=== PATIENT | female | born 1960 | race Caucasian/White ===

== ENCOUNTER 2018-09-19 11:22 | Emergency (ER) | END 2018-09-19 13:32 | disposition home or self-care (01) ==

== ENCOUNTER 2018-11-27 13:51 | Emergency (ER) | payer OTHER ==
[~2018-11-27] VITALS: Ht 165.1 cm; Wt 47.4 kg
[~2018-11-27 13:51] MED LIST: IBUP-1561 PO
[2018-11-27 14:03] VITALS: BP 117/61; PULSE 76; RESP 20; Ht 165.1 cm; Wt 47.4 kg
--- NOTE | 2018-11-27 16:50 | ERD ---
ER Documentation Chief Complaint Chief Complaint Complains of generalized rash x 2 days HPI 58-year-old female with no past medical history presents with scattered itchy erythematous macules over the face arms and hands bilaterally. Denies fever, pain, wheezing, shortness of breath. Denies new foods, deodorants, soaps, medications. Denies past medical history. Denies allergies. Denies medications. Denies surgeries. Denies alcohol, tobacco, drug use. Up to date on vaccines. ROS All systems reviewed and are negative except as per history of present illness. Medications Home Meds Active Scripts Diphenhydramine Hcl* (Benadryl*) 25 Mg Cap, 25 MG PO Q6 PRN for ITCHING/RASH, #30 TAB Prov:MANASA MCGUIRE 11/27/18 Triamcinolone Acetonide (Triamcinolone Acetonide) 0.1% - 60 Ml Lotion, 1 APPLIC TOP TID for Bug Bites, #1 BOTTLE Prov:MANASA MCGUIRE 11/27/18 Ibuprofen* (Motrin*) 400 Mg Tab, 400 MG PO Q6, #20 TAB Prov:DIANN HENSLEY MD 09/19/18 Allergies Allergies: Coded Allergies: No Known Allergy (Unverified , 11/27/18) PMhx/Soc History of Surgery: Yes (APPENDECTOMY,HYSTERECTOMY) Anesthesia Reaction: No Hx Neurological Disorder: No Hx Respiratory Disorders: No Hx Cardiac Disorders: No Hx Psychiatric Problems: No Hx Alcohol Use: No Hx Substance Use: No Hx Tobacco Use: No FmHx Family History: No diabetes, No coronary disease, No other Physical Exam Vitals Vital Signs Date Temp Pulse Resp B/P (MAP) Pulse Ox O2 O2 Flow FiO2 Time Delivery Rate 11/27/18 98.6 76 20 117/61 100 14:03 (79) Physical Exam Const: No acute distress Eyes: Normal Conjunctiva ENT: Normal External Ears, Nose and Mouth. Airway patent with no swelling or edema in the tongue or throat. Resp: Clear to auscultation bilaterally Cardio: Regular rate and rhythm, no murmurs Skin: Scattered erythematous macules with punctate center located on the face and arms bilaterally. No fluctuance or induration. No discharge or signs of infection. Neur: Awake and alert Psych: Normal Mood and Affect Results 24 hrs Current Medications Medications Dose Sig/[place] Start Time Status Last (Trade) Ordered Route PRN Stop Time Admin Dose Reason Admin 25 mg ONCE ONCE 11/27/18 DC 11/27/18 Diphenhydrami PO 17:00 16:54 ne HCl 11/27/18 17:01 (Benadryl) Procedures/MDM 58-year-old female with no past medical history presents with scattered itchy erythematous macules over the face arms and hands bilaterally. Denies fever, pain, wheezing, shortness of breath. Denies new foods, deodorants, soaps, medications. I have low suspicion for anaphylaxis. Presentation consistent with bedbug bites. Patient given Rx for Benadryl as well as triamcinolone topical. Patient discharged with strict ER precautions. Patient advised to follow up with PMD. All questions answered at discharge. Departure Diagnosis: Primary Impression: Rash Condition: MANASA Escobar Nov 27, 2018 16:50
[2018-11-27] MEDS ORDERED: TR1B60 TOP (16:54)
[2018-11-27] MEDS ORDERED: BEN25 PO (16:55)
[2018-11-27] MEDS ORDERED: DIPHENHYDRAMINE 25 MG CAP PO ONE (17:00)
== END 2018-11-27 17:01 | disposition home or self-care (01) ==
LOC: FTE 13:51
DX: S40.861A Insect bite (nonvenomous) of right upper arm, initial encounter (principal); S00.86XA Insect bite (nonvenomous) of other part of head, initial encounter; S40.862A Insect bite (nonvenomous) of left upper arm, initial encounter; S60.561A Insect bite (nonvenomous) of right hand, initial encounter; S60.562A Insect bite (nonvenomous) of left hand, initial encounter; W57.XXXA Bitten or stung by nonvenomous insect and other nonvenomous arthropods, initial encounter; Y92.9 Unspecified place or not applicable
CPT/HCPCS: 99283

== ENCOUNTER 2018-12-07 16:36 | Emergency (ER) | payer OTHER ==
[~2018-12-07] VITALS: Ht 162.6 cm; Wt 48.1 kg
[~2018-12-07 16:36] MED LIST changes: +BEN25 PO; +TR1B60 TOP
[2018-12-07 16:40] VITALS: BP 99/57; PULSE 81; RESP 19; Ht 162.6 cm; Wt 48.1 kg
[2018-12-07] MEDS ORDERED: TR1B60 TOP (17:42)
[2018-12-07] MEDS ORDERED: BEN25 PO (17:42)
--- NOTE | 2018-12-07 18:11 | ERD ---
ER Documentation Chief Complaint Chief Complaint allergic reaction , needs medication refill HPI 58-year-old female with history of bug bites presents for refill of her medication. States she is been taking Benadryl and triamcinolone and has been successfully treating her bites. Denies wheezing, difficulty breathing, facial edema, fevers, vomiting. Denies past medical history. Denies allergies. Denies medications. Denies surgeries. Denies alcohol, tobacco, drug use. Up to date on vaccines. ROS All systems reviewed and are negative except as per history of present illness. Medications Home Meds Active Scripts Diphenhydramine Hcl* (Benadryl*) 25 Mg Cap, 25 MG PO Q6 PRN for ITCHING/RASH, #30 TAB Prov:MANASA MCGUIRE 12/07/18 Triamcinolone Acetonide (Triamcinolone Acetonide) 0.1% - 60 Ml Lotion, 1 APPLIC TOP TID for Bug Bites, #1 BOTTLE Prov:MANASA MCGUIRE 12/07/18 Ibuprofen* (Motrin*) 400 Mg Tab, 400 MG PO Q6, #20 TAB Prov:DIANN HENSLEY MD 09/19/18 Allergies Allergies: Coded Allergies: No Known Allergy (Unverified , 11/27/18) PMhx/Soc History of Surgery: Yes (APPENDECTOMY,HYSTERECTOMY) Anesthesia Reaction: No Hx Neurological Disorder: No Hx Respiratory Disorders: No Hx Cardiac Disorders: No Hx Psychiatric Problems: No Hx Alcohol Use: No Hx Substance Use: No Hx Tobacco Use: No FmHx Family History: No diabetes, No coronary disease, No other Physical Exam Vitals Vital Signs Date Temp Pulse Resp B/P (MAP) Pulse Ox O2 O2 Flow FiO2 Time Delivery Rate 12/07/18 98.7 81 19 99/57 (71) 99 16:40 Physical Exam Const: No acute distress Eyes: Normal Conjunctiva ENT: Normal External Ears, Nose and Mouth. Airway patent, no angioedema or tongue swelling. Resp: Clear to auscultation bilaterally. No wheezing. Cardio: Regular rate and rhythm, no murmurs Abd: Soft, non tender, non distended. Normal bowel sounds Skin: Erythematous macules noted over the neck arms and face, consistent with bug bites. Neur: Awake and alert Psych: Normal Mood and Affect Procedures/MDM 58-year-old female with history of bug bites presents for refill of her medication. States she is been taking Benadryl and triamcinolone and has been successfully treating her bites. Denies wheezing, difficulty breathing, facial edema, fevers, vomiting. Based on clinical findings and patient history appears that the patient has been suffering from bug bites, however the Benadryl and triamcinolone have been effective in treating them. I refilled her prescriptions as she requested. I have low suspicion for anaphylaxis, angioedema, difficulty breathing, or other emergent etiologies. Patient discharged with strict ER precautions. Patient advised to follow up with PMD. All questions answered at discharge. Departure Diagnosis: Primary Impression: Rash Additional Impression: Medication refill Condition: Stable Patient Instructions: Allergic Reaction, Other (General) Referrals: COUNT INCLUDES THE [facility] YOU HAVE RECEIVED A MEDICAL SCREENING EXAM AND THE RESULTS INDICATE THAT YOU DO NOT HAVE A CONDITION THAT REQUIRES URGENT TREATMENT IN THE EMERGENCY DEPARTMENT. FURTHER EVALUATION AND TREATMENT OF YOUR CONDITION CAN WAIT UNTIL YOU ARE SEEN IN YOUR DOCTORS OFFICE WITHIN THE NEXT 1-2 DAYS. IT IS YOUR RESPONSIBILITY TO MAKE AN APPOINTMENT FOR FOLOW-UP CARE. IF YOU HAVE A PRIMARY DOCTOR --you should call your primary doctor and schedule an appointment IF YOU DO NOT HAVE A PRIMARY DOCTOR YOU CAN CALL OUR PHYSICIAN REFERRAL HOTLINE AT IF YOU CAN NOT AFFORD TO SEE A PHYSICIAN YOU CAN CHOSE FROM THE FOLLOWING CO LOCATED WITHIN [facility] [id number]. [facility] [address]. [facility] [address] [facility] [address] [facility] [address] [facility]. [facility]. [address] Additional Instructions: FOLLOW UP WITH YOUR PRIMARY CARE PHYSICIAN TOMORROW.Return to this facility if you are not improving as expected. MANASA MCGUIRE Dec 07, 2018 18:11
== END 2018-12-07 18:13 | disposition home or self-care (01) ==
LOC: FTE 16:36
DX: R21 Rash and other nonspecific skin eruption (principal)
CPT/HCPCS: 99281